=== PATIENT | female | born 1960 ===

== ENCOUNTER 2023-11-12 09:30 | Inpatient (IN) | payer OTHER ==
[~2023-11-12] VITALS: Ht 162.6 cm; Wt 86.6 kg
[2023-11-12] MEDS ORDERED: ALDACTONE25 MG PO (11:19)
[2023-11-12] MEDS ORDERED: LOSARTAN-HCTZ1 EAC1 PO (11:19)
[2023-11-12] MEDS ORDERED: TOPROL XL50 M1 PO (11:20)
[2023-11-12] MEDS ORDERED: GLIPIZIDE XL10 MG PO (11:20)
[2023-11-12] MEDS ORDERED: ACTOS15 MG PO (11:20)
[2023-11-12] MEDS ORDERED: MEGESTROL ACETA40 MG PO (11:20)
[2023-11-12] MEDS ORDERED: HYDRALAZINE HCL50 MG PO (11:21)
[2023-11-18] MEDS ORDERED: CEFOXITIN SODIUM 2,000 MG VIAL IV ONE ×2 (14:29→20:45)
[2023-11-18] MEDS ORDERED: DEXTROSE 50 % IN WATER 0.5 G/ML DISP.SYRIN IV PRN (15:30)
[2023-11-18] MEDS ORDERED: INSULIN LISPRO 1,000 UNIT/10 ML UNITS SUBCUTANEO PRN (15:30)
[2023-11-18] MEDS ORDERED: hydrALAZINE HCL 20 MG VIAL IV PRN (15:30)
[2023-11-18] MEDS ORDERED: THROMBIN,HU/FIBRINOGEN/CALCIUM 10 ML SYRINGE TOP ONE ×2 (19:37→19:45)
[2023-11-18] MEDS ORDERED: VISTASEAL DUAL APPICATOR 1 EACH APPL TOP ONE (19:38)
[2023-11-18] MEDS ORDERED: RINGERS SOLUTION,LACTATED 1,000 ML IV SCH (19:45)
[2023-11-18] MEDS ORDERED: ONDANSETRON HCL 2 MG/ML VIAL IV PRN (19:45)
[2023-11-18] MEDS ORDERED: MORPHINE SULFATE 4 MG/ML CARTRIDGE IV PRN (20:00)
[2023-11-18] MEDS ORDERED: FAMOTIDINE/PF 20 MG/2 ML VIAL IV SCH (21:00)
[2023-11-18] MEDS ORDERED: DOCUSATE SODIUM 100MG CAP PO SCH (21:00)
[2023-11-18] MEDS ORDERED: FAMOTIDINE/PF 20 MG/2 ML VIAL ONE (21:29)
[2023-11-19] MEDS ORDERED: CEFOXITIN SODIUM 2,000 MG VIAL IV SCH (01:00)
[2023-11-19] MEDS ORDERED: KETOROLAC TROMETHAMINE 30 MG VIAL IU SCH (01:00)
[2023-11-19 06:07] LABS: HEMATOCRIT 32.8 % (36.0-45.00); HEMOGLOBIN 10.8 g/dL (12.0-15.00); MEAN CELL VOLUME 86.1 fL (80.00-100.00); MEAN CORPUSCULAR HEMOGLOBIN 28.3 pg (27.00-32.0); MEAN CORPUSCULAR HGB CONC 32.9 g/dl (32.0-36.0); PLATELET COUNT 232 K/uL (150-450); RED BLOOD COUNT 3.81 M/uL (4.00-6.00); RED CELL DISTRIBUTION WIDTH 13.4 % (11.5-14.5)
[2023-11-19 06:39] LABS: CALCIUM 9.1 mg/dL (8.5-10.1); CREATININE SERUM 1.22 mg/dL (0.55-1.02); GFR 44.23; POTASSIUM 4.26 mEq/L (3.5-5.1)
[2023-11-19] MEDS ORDERED: ENOXAPARIN SODIUM 40 MG/0.4 ML SYRINGE SUBCUTANEO SCH (09:00)
[2023-11-19] MEDS ORDERED: SIMETHICONE 125 MG CAPSULE PO SCH (09:00)
[2023-11-20] MEDS ORDERED: LOSARTAN/HYDROCHLOROTHIAZIDE 1 UDTAB TABLET PO SCH (09:00)
== END 2023-11-19 16:06 | disposition home or self-care (01) | DRG 743 ==
LOC: O/R 11-18 06:58 → SURH 11-18 09:30
PROVIDERS: Obstetrics & Gynecology; ADMIT Obstetrics & Gynecology Gynecologic Oncology; ATTEND Obstetrics & Gynecology Gynecologic Oncology
PROC: 0UT74ZZ Resection of Bilateral Fallopian Tubes, Percutaneous Endoscopic Approach (ICD-10-PCS; 2023-11-18)
PROC: 0UT24ZZ Resection of Bilateral Ovaries, Percutaneous Endoscopic Approach (ICD-10-PCS; 2023-11-18)
PROC: 07BC4ZZ Excision of Pelvis Lymphatic, Percutaneous Endoscopic Approach (ICD-10-PCS; 2023-11-18)
PROC: 0UT94ZZ Resection of Uterus, Percutaneous Endoscopic Approach (ICD-10-PCS; principal; 2023-11-18 16:45)
DX: N80.03 Adenomyosis of the uterus (principal); Z20.822 Contact with and (suspected) exposure to COVID-19